=== PATIENT | male | born 1995 | race Caucasian/White ===

== ENCOUNTER 2020-01-31 11:58 | Emergency (ER) | payer OTHER ==
[~2020-01-31] VITALS: Ht 175.3 cm; Wt 90.7 kg
[2020-01-31] MEDS ORDERED: DUI500 PO (14:34)
[2020-01-31] MEDS ORDERED: KETO10TA2 PO (14:34)
== END 2020-01-31 14:40 | disposition home or self-care (01) ==
LOC: ER 11:58
DX: S61.021A Laceration with foreign body of right thumb without damage to nail, initial encounter (principal); W23.0XXA Caught, crushed, jammed, or pinched between moving objects, initial encounter; Y93.89 Activity, other specified; Y92.89 Other specified places as the place of occurrence of the external cause; Y99.8 Other external cause status